=== PATIENT | male | born 1945 | race Caucasian/White ===

== ENCOUNTER 2018-06-25 16:15 | Emergency (ER) | payer MEDICARE ==
[~2018-06-25] VITALS: Ht 190.5 cm; Wt 56.0 kg
[2018-06-25] MEDS ORDERED: SODIUM CHLORIDE FLUSH 10ML SYR IVF ONE (17:00)
[2018-06-25] MEDS ORDERED: ASPIRIN 81 MG TABLET CHEW PO ONE (17:00)
[2018-06-25] MEDS ORDERED: ASPIRIN 81 MG TABLET CHEW ONE (17:19)
[2018-06-25 17:31] LABS: BASOPHILS # (AUTO) 0.07 x10^3/uL (0-0.1); BASOPHILS % (AUTO) 1 % (0-1); EOSINOPHILS # (AUTO) 0.27 x10^3/uL (0-0.4); EOSINOPHILS % (AUTO) 4 % (1-7); LYMPHOCYTES # (AUTO) 1.86 x10^3/uL (1-3.4); LYMPHOCYTES % (AUTO) 26 % (22-44); MD NO; MEAN CORPUSCULAR HEMOGLOBIN 32.8 pg (27.5-34.5); MEAN CORPUSCULAR HGB CONC 32.8 g/dL (33.2-36.2); MEAN PLATELET VOLUME 8.9 fL (7.4-10.4); MONOCYTES # (AUTO) 0.55 x10^3/uL (0.2-0.8); MONOCYTES % (AUTO) 8 % (2-9); NEUTROPHILS % (AUTO) 61 % (42-75); PLATELET COUNT 258 x10^3/uL (130-400); RED BLOOD COUNT 5.29 x10^6/uL (4.38-5.82); RED CELL DISTRIBUTION WIDTH 14.6 % (9.4-14.8)
[2018-06-25 17:40] LABS: ALBUMIN 4.1 g/dL (3.4-5.0); ANION GAP 5 mmol/L (5-15); CALCIUM 9.2 mg/dL (8.5-10.1); CHLORIDE 104 mmol/L (98-107)
[2018-06-25 17:46] LABS: ALANINE AMINOTRANSFERASE 39 U/L (12-78); ALKALINE PHOSPHATASE 74 U/L (45-117); BILIRUBIN,TOTAL 0.5 mg/dL (0.2-1.0); TOTAL PROTEIN 7.7 g/dL (6.4-8.2); TROPONIN I < 0.015 ng/mL (0.000-0.045)
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
[2018-06-25 19:29] VITALS: BP 117/43
== END 2018-06-25 19:31 | disposition home or self-care (01) ==
LOC: ED 17:29
DX: R07.2 Precordial pain (principal); R06.00 Dyspnea, unspecified; R10.9 Unspecified abdominal pain; I25.2 Old myocardial infarction
CPT/HCPCS: 36415; 71250; 74176; 80053; 84484; 85025; 93005; 99284

== ENCOUNTER 2018-07-12 00:31 | Inpatient (IN) | payer MEDICARE ==
[~2018-07-12] VITALS: Ht 190.5 cm; Wt 58.6 kg
[2018-07-12] MEDS ORDERED: ASPIRIN 81 MG TABLET CHEW ONE (00:44)
[2018-07-12] MEDS ORDERED: ASPIRIN 81 MG TABLET CHEW PO ONE (01:00)
[2018-07-12] MEDS ORDERED: SODIUM CHLORIDE FLUSH 10ML SYR IVF ONE (01:00)
[2018-07-12 01:17] LABS: BASOPHILS # (AUTO) 0.03 x10^3/uL (0-0.1); BASOPHILS % (AUTO) 0 % (0-1); EOSINOPHILS # (AUTO) 0.23 x10^3/uL (0-0.4); EOSINOPHILS % (AUTO) 3 % (1-7); LYMPHOCYTES # (AUTO) 1.29 x10^3/uL (1-3.4); LYMPHOCYTES % (AUTO) 14 % (22-44); MD NO; MEAN CORPUSCULAR HEMOGLOBIN 33.4 pg (27.5-34.5); MEAN CORPUSCULAR HGB CONC 33.9 g/dL (33.2-36.2); MEAN CORPUSCULAR VOLUME 98.7 fL (81-97); MEAN PLATELET VOLUME 7.9 fL (7.4-10.4); MONOCYTES # (AUTO) 0.78 x10^3/uL (0.2-0.8); MONOCYTES % (AUTO) 9 % (2-9); NEUTROPHILS # (AUTO) 6.74 x10^3/uL (1.8-6.8); NEUTROPHILS % (AUTO) 74 % (42-75); PLATELET COUNT 232 x10^3/uL (130-400); RED BLOOD COUNT 4.56 x10^6/uL (4.38-5.82); RED CELL DISTRIBUTION WIDTH 14.5 % (9.4-14.8)
[2018-07-12 01:25] LABS: INTERNATIONAL NORMALIZED RATIO 0.99 (0.93-1.1); PROTHROMBIN TIME 10.4 Seconds (9.6-11.5)
[2018-07-12 01:27] LABS: ALBUMIN 3.3 g/dL (3.4-5.0); ANION GAP 2 mmol/L (5-15); CALCIUM 8.4 mg/dL (8.5-10.1); CHLORIDE 105 mmol/L (98-107)
[2018-07-12 01:33] LABS: ALANINE AMINOTRANSFERASE 21 U/L (12-78); ALKALINE PHOSPHATASE 62 U/L (45-117); BILIRUBIN,TOTAL 0.2 mg/dL (0.2-1.0); CREATININE 0.98 mg/dL (0.7-1.3); TOTAL PROTEIN 6.4 g/dL (6.4-8.2)
[2018-07-12 01:35] LABS: TROPONIN I 0.154 ng/mL (0.000-0.045)
[2018-07-12 02:38] VITALS: BP 120/70
[2018-07-12] MEDS ORDERED: TRAM50TA2 PO (02:54)
[2018-07-12] MEDS ORDERED: FAMO1TAB3 PO (02:55)
[2018-07-12] MEDS ORDERED: CALCIUM CARBONATE 500 MG TAB.CHEW ONE (03:19)
[2018-07-12] MEDS ORDERED: CALCIUM CARBONATE 500 MG TAB.CHEW PO PRN (03:30)
[2018-07-12] MEDS ORDERED: NITROGLYCERIN 0.4 MG/SPRAY SL PRN (04:00)
[2018-07-12] MEDS ORDERED: ENALAPRILAT 1.25 MG/ML, 2ML IVPush PRN (04:00)
[2018-07-12] MEDS: HEPARIN 5,000 UNITS/ML, 1ML SQ SCH ×3 (04:00→20:00)
[2018-07-12] MEDS ORDERED: NITROGLYCERIN 0.4 MG BOTTLE (25 TABS) SL PRN ×2 (04:00)
[2018-07-12] MEDS ORDERED: ONDANSETRON 2MG/ML, 2ML IVPush PRN (04:00)
[2018-07-12] MEDS ORDERED: ACETAMINOPHEN 325 MG TABLET PO PRN (04:00)
[2018-07-12] MEDS: LACTATED RINGERS 1,000 ML IV SCH (04:11)
[2018-07-12] MEDS ORDERED: ALBUTEROL SULFATE 2.5 MG/3 ML NPPB PRN (05:30)
[2018-07-12 05:35] LABS: TROPONIN I 0.872 ng/mL (0.000-0.045)
[2018-07-12 05:40] LABS: THYROID STIMULATING HORMONE 0.962 mIU/L (0.358-3.740)
[2018-07-12] MEDS: OMEPRAZOLE 20 MG CAPSULE.DR PO SCH (05:57)
[2018-07-12] MEDS ORDERED: ASPIRIN 325 MG TABLET EC PO SCH (06:00)
[2018-07-12 07:50] VITALS: BP 116/68
[2018-07-12 10:02] LABS: TROPONIN I 0.635 ng/mL (0.000-0.045)
[2018-07-12] MEDS: ASPIRIN 81 MG TABLET EC PO SCH (10:11)
[2018-07-12] MEDS ORDERED: REGADENOSON 0.4 MG/5 ML SYRINGE ONE (11:30)
[2018-07-12 13:36] VITALS: BP 102/60
[2018-07-12 19:31] VITALS: BP 99/48
[2018-07-12] MEDS ORDERED: DIPHENHYDRAMINE 50 MG CAPSULE PO PRN (21:30)
[2018-07-13] MEDS: LACTATED RINGERS 1,000 ML IV SCH (00:52)
[2018-07-13 01:42] VITALS: BP 103/59
[2018-07-13] MEDS: HEPARIN 5,000 UNITS/ML, 1ML SQ SCH ×2 (04:00→12:00)
[2018-07-13 05:27] LABS: CHOL/HDL RATIO 2.9; LDL/HDL RATIO 1.5 (0.5-3.0)
[2018-07-13] MEDS: ASPIRIN 81 MG TABLET EC PO SCH (06:43)
[2018-07-13] MEDS: OMEPRAZOLE 20 MG CAPSULE.DR PO SCH (06:43)
[2018-07-13 07:26] VITALS: BP 112/67
[2018-07-13 12:24] LABS: BASOPHILS # (AUTO) 0.04 x10^3/uL (0-0.1); BASOPHILS % (AUTO) 1 % (0-1); EOSINOPHILS # (AUTO) 0.27 x10^3/uL (0-0.4); EOSINOPHILS % (AUTO) 3 % (1-7); LYMPHOCYTES # (AUTO) 2.06 x10^3/uL (1-3.4); LYMPHOCYTES % (AUTO) 22 % (22-44); MD NO; MEAN CORPUSCULAR HEMOGLOBIN 32.9 pg (27.5-34.5); MEAN CORPUSCULAR HGB CONC 33.3 g/dL (33.2-36.2); MEAN CORPUSCULAR VOLUME 98.9 fL (81-97); MEAN PLATELET VOLUME 8.8 fL (7.4-10.4); MONOCYTES # (AUTO) 0.84 x10^3/uL (0.2-0.8); MONOCYTES % (AUTO) 9 % (2-9); NEUTROPHILS # (AUTO) 6.19 x10^3/uL (1.8-6.8); NEUTROPHILS % (AUTO) 66 % (42-75); PLATELET COUNT 233 x10^3/uL (130-400); RED BLOOD COUNT 4.54 x10^6/uL (4.38-5.82); RED CELL DISTRIBUTION WIDTH 14.3 % (9.4-14.8)
[2018-07-13 14:22] VITALS: BP 128/64
[2018-07-13] MEDS ORDERED: methylPREDNISolone SOD SUCC 125 MG/2 ML IVPush ONE (17:00)
[2018-07-13] MEDS ORDERED: DIPHENHYDRAMINE 50 MG/ML, 1ML IVPush ONE (17:00)
[2018-07-13] MEDS ORDERED: CEFD300C37 PO (17:30)
[2018-07-13] MEDS ORDERED: OMEP-110 PO (17:30)
[2018-07-13] MEDS ORDERED: DOXY100T PO (17:30)
[2018-07-13] MEDS ORDERED: ALBU6.7H IH (17:30)
[2018-07-13] MEDS ORDERED: OMNIPAQUE 350 MG/ML, 100ML BOTTLE ONE (17:52)
== END 2018-07-13 19:23 | disposition home or self-care (01) | DRG 194 ==
LOC: ED 00:56 → EDIP 01:54 → 5SO 02:34
PROVIDERS: ADMIT Family Medicine; ATTEND Family Medicine
DX: J18.9 Pneumonia, unspecified organism (principal); Z68.1 Body mass index [BMI] 19.9 or less, adult; I24.8 Other forms of acute ischemic heart disease; R07.89 Other chest pain; I77.810 Thoracic aortic ectasia; J43.9 Emphysema, unspecified; R63.6 Underweight; Z79.82 Long term (current) use of aspirin; Z86.010 Personal history of colon polyps; Z91.19 Patient's noncompliance with other medical treatment and regimen; Z99.81 Dependence on supplemental oxygen; I25.2 Old myocardial infarction
CPT/HCPCS: 36415; 71045; 71275; 78452; 80053; 80061; 82378; 83880; 84443; 84484; 85025; 85610; 85730; 93005; 93017; 93306; 99291; G0378; J2785; Q9967; A9502; C9898; J1200; J2930; J7120

== ENCOUNTER 2018-10-18 09:01 | Inpatient (IN) | payer MEDICARE ==
[~2018-10-18] VITALS: Ht 190.5 cm; Wt 61.0 kg
[~2018-10-18 09:01] MED LIST: ALBU6.7H8 IH; CEFD300C37 PO; DOXY100T PO; FAMO1TAB3 PO; OMEP-110 PO; TRAM50TA2 PO
[2018-10-18] MEDS ORDERED: ASPIRIN 325 MG TABLET PO STA (09:04)
[2018-10-18] MEDS ORDERED: FENTANYL PF 100 MCG/2ML ONE (09:12)
[2018-10-18] MEDS ORDERED: VERAPAMIL 2.5 MG/ML, 2ML ONE (09:12)
[2018-10-18] MEDS ORDERED: MIDAZOLAM 1 MG/ML, 5ML ONE (09:12)
[2018-10-18] MEDS ORDERED: LIDOCAINE 2%, 20ML ONE (09:12)
[2018-10-18] MEDS ORDERED: BIVALIRUDIN 250 MG ONE (09:12)
[2018-10-18] MEDS ORDERED: DIPHENHYDRAMINE 50 MG/ML, 1ML ONE (09:12)
[2018-10-18] MEDS ORDERED: NITROGLYCERIN 5 MG/ML, 10ML ONE (09:12)
[2018-10-18] MEDS ORDERED: HEPARIN 1,000 UNITS/ML, 10ML ONE (09:12)
[2018-10-18] MEDS ORDERED: TICAGRELOR 90 MG TABLET ONE (09:12)
[2018-10-18 09:16] LABS: BASOPHILS # (AUTO) 0.03 x10^3/uL (0-0.1); BASOPHILS % (AUTO) 0 % (0-1); EOSINOPHILS # (AUTO) 0.04 x10^3/uL (0-0.4); EOSINOPHILS % (AUTO) 0 % (1-7); LYMPHOCYTES % (AUTO) 8 % (22-44); MD NO; MEAN CORPUSCULAR HEMOGLOBIN 32.9 pg (27.5-34.5); MEAN CORPUSCULAR HGB CONC 32.6 g/dL (33.2-36.2); MEAN CORPUSCULAR VOLUME 100.9 fL (81-97); MEAN PLATELET VOLUME 7.8 fL (7.4-10.4); MONOCYTES % (AUTO) 10 % (2-9); NEUTROPHILS % (AUTO) 82 % (42-75); PLATELET COUNT 231 x10^3/uL (130-400); RED CELL DISTRIBUTION WIDTH 13.3 % (9.4-14.8)
[2018-10-18] MEDS ORDERED: methylPREDNISolone SOD SUCC 125 MG/2 ML ONE (09:24)
[2018-10-18 09:28] LABS: INTERNATIONAL NORMALIZED RATIO 1.06 (0.93-1.1); PROTHROMBIN TIME 11.1 Seconds (9.6-11.5)
--- NOTE | 2018-10-18 09:37 | NUR ---
PT ARRIVED TO ED AT 0900, DR KYLE TO BEDSIDE APPROX 0912 AND REVIEWED EKG. UPON REVIEW OF PREVIOUS EKG PT GOING TO PASSENGER VESSEL CHEF PER DR KYLE. PT ARRIVED TO PASSENGER VESSEL CHEF AT 0918. VSS. [id number]
[2018-10-18] MEDS ORDERED: ISOSORBIDE MONONITRATE ER 30 MG TABLET PO SCH (11:00)
[2018-10-18 12:00] VITALS: BP 103/62
[2018-10-18] MEDS: SODIUM CHLORIDE 0.9% 1,000 ML IV SCH ×2 (14:07→19:34)
[2018-10-18 16:00] VITALS: BP 95/58
[2018-10-18] MEDS ORDERED: TRAM50TA2 PO (16:23)
[2018-10-18] MEDS ORDERED: METOPROLOL TARTRATE 25 MG TABLET PO SCH (18:00)
[2018-10-18] MEDS: METOPROLOL TARTRATE 25 MG TABLET PO SCH (18:00)
[2018-10-18] MEDS: TICAGRELOR 90 MG TABLET PO SCH (19:34)
[2018-10-18] MEDS: ATORVASTATIN 80 MG TABLET PO SCH (19:34)
[2018-10-19] MEDS: SODIUM CHLORIDE 0.9% 1,000 ML IV SCH (02:41)
[2018-10-19 04:35] LABS: BASOPHILS # (AUTO) 0.01 x10^3/uL (0-0.1); BASOPHILS % (AUTO) 0 % (0-1); EOSINOPHILS % (AUTO) 0 % (1-7); LYMPHOCYTES # (AUTO) 0.83 x10^3/uL (1-3.4); LYMPHOCYTES % (AUTO) 6 % (22-44); MD NO; MEAN CORPUSCULAR HEMOGLOBIN 33.6 pg (27.5-34.5); MEAN CORPUSCULAR HGB CONC 32.9 g/dL (33.2-36.2); MEAN CORPUSCULAR VOLUME 102.2 fL (81-97); MEAN PLATELET VOLUME 8.7 fL (7.4-10.4); MONOCYTES # (AUTO) 1.07 x10^3/uL (0.2-0.8); MONOCYTES % (AUTO) 8 % (2-9); NEUTROPHILS # (AUTO) 11.44 x10^3/uL (1.8-6.8); NEUTROPHILS % (AUTO) 86 % (42-75); PLATELET COUNT 207 x10^3/uL (130-400); RED BLOOD COUNT 4.16 x10^6/uL (4.38-5.82); RED CELL DISTRIBUTION WIDTH 13.7 % (9.4-14.8)
[2018-10-19 04:47] LABS: ANION GAP 4 mmol/L (5-15); CALCIUM 8.3 mg/dL (8.5-10.1); CHLORIDE 107 mmol/L (98-107); CREATININE 0.86 mg/dL (0.7-1.3)
[2018-10-19] MEDS: METOPROLOL TARTRATE 25 MG TABLET PO SCH ×2 (05:18→17:30)
[2018-10-19] MEDS: ASPIRIN 81 MG TABLET EC PO SCH (09:08)
[2018-10-19] MEDS: TICAGRELOR 90 MG TABLET PO SCH ×2 (09:08→21:08)
[2018-10-19 13:30] VITALS: BP 115/68
[2018-10-19 15:45] VITALS: BP 118/72
[2018-10-19 17:30] VITALS: BP 116/74
[2018-10-19 18:57] VITALS: BP 121/69
[2018-10-19] MEDS: ATORVASTATIN 80 MG TABLET PO SCH (21:08)
[2018-10-20 01:51] VITALS: BP 115/70
[2018-10-20] MEDS: METOPROLOL TARTRATE 25 MG TABLET PO SCH (06:00)
[2018-10-20 06:08] VITALS: BP 104/64
[2018-10-20] MEDS: ASPIRIN 81 MG TABLET EC PO SCH (06:10)
[2018-10-20 06:55] VITALS: BP 111/63
[2018-10-20] MEDS: TICAGRELOR 90 MG TABLET PO SCH (08:58)
[2018-10-20] MEDS ORDERED: ATOR-2 PO (09:54)
[2018-10-20] MEDS ORDERED: METO25TA35 PO ×2 (09:54)
[2018-10-20] MEDS ORDERED: ASPI81TA45 PO (09:54)
[2018-10-20] MEDS ORDERED: TICA90TA PO (09:54)
[2018-10-25] MEDS ORDERED: APIX2.5T PO (06:35)
[2018-10-25] MEDS ORDERED: ATOR80TA PO (15:53)
[2018-10-26] MEDS ORDERED: ASPI81TA50 PO (12:42)
== END 2018-10-20 11:40 | disposition home or self-care (01) | DRG 246 ==
LOC: EDBD 09:01 → MERGE 09:01 → ED 09:20 → EDIP 09:43 → CCU 10:17 → ICU 10-19 07:09 → 5SO 10-19 15:40 → DCLOUNGE 10-20 11:24
PROVIDERS: ADMIT Internal Medicine; ATTEND Internal Medicine
PROC: 027035Z Dilation of Coronary Artery, One Artery with Two Drug-eluting Intraluminal Devices, Percutaneous Approach (ICD-10-PCS; principal; 2018-10-18)
PROC: 02703ZZ Dilation of Coronary Artery, One Artery, Percutaneous Approach (ICD-10-PCS; 2018-10-18)
PROC: 4A023N7 Measurement of Cardiac Sampling and Pressure, Left Heart, Percutaneous Approach (ICD-10-PCS; 2018-10-18)
PROC: B2111ZZ Fluoroscopy of Multiple Coronary Arteries using Low Osmolar Contrast (ICD-10-PCS; 2018-10-18)
DX: I21.09 ST elevation (STEMI) myocardial infarction involving other coronary artery of anterior wall (principal); I50.33 Acute on chronic diastolic (congestive) heart failure; Z68.1 Body mass index [BMI] 19.9 or less, adult; E78.5 Hyperlipidemia, unspecified; I25.10 Atherosclerotic heart disease of native coronary artery without angina pectoris; I34.0 Nonrheumatic mitral (valve) insufficiency; J43.9 Emphysema, unspecified; R63.4 Abnormal weight loss; I77.819 Aortic ectasia, unspecified site; R00.1 Bradycardia, unspecified; Z72.0 Tobacco use; Z90.49 Acquired absence of other specified parts of digestive tract; Z86.79 Personal history of other diseases of the circulatory system; Z90.81 Acquired absence of spleen; Z95.5 Presence of coronary angioplasty implant and graft
CPT/HCPCS: 0399T; 36415; 71045; 80047; 80048; 84484; 85025; 85610; 85730; 87081; 93005; 93306; 93458; 99156; 99157; C1769; C1894; G0378; J0583; J1644; J2250; J3010; C1725; C1874; C1887; J1200; J2930; J7030; Q9967

== ENCOUNTER 2018-10-25 05:05 | Inpatient (IN) | payer MEDICARE ==
[~2018-10-25] VITALS: Ht 190.5 cm; Wt 63.4 kg
[2018-10-26 12:46] VITALS: BP 108/65
== END 2018-10-26 14:07 | disposition home health service (06) | DRG 313 ==
LOC: ED 06:33 → EDIP 06:34 → 5SO 07:45 → DCLOUNGE 10-26 13:47
PROVIDERS: ADMIT Internal Medicine; ATTEND Internal Medicine
DX: R07.89 Other chest pain (principal); I25.10 Atherosclerotic heart disease of native coronary artery without angina pectoris; E78.5 Hyperlipidemia, unspecified; F17.200 Nicotine dependence, unspecified, uncomplicated; H54.7 Unspecified visual loss; I34.0 Nonrheumatic mitral (valve) insufficiency; I71.2 Thoracic aortic aneurysm, without rupture; J44.9 Chronic obstructive pulmonary disease, unspecified; Z86.79 Personal history of other diseases of the circulatory system; I25.2 Old myocardial infarction; Z90.81 Acquired absence of spleen; Z95.5 Presence of coronary angioplasty implant and graft; Z91.041 Radiographic dye allergy status
CPT/HCPCS: 36415; 71045; 71275; 80048; 80053; 80061; 82040; 83036; 83735; 84439; 84443; 84484; 85025; 93005; 93308; 93321; 93325; 94640; 96374; G0378; Q9967; J2270; J7030; J7512

== ENCOUNTER → 2019-11-02 | Outpatient (CLI) | payer MEDICARE ==
[~2019-11-02] MED LIST changes: +APIX2.5T PO; +ASPI81TA45 PO; +ASPI81TA50 PO; +ATOR-2 PO; +ATOR80TA PO; +METO25TA35 PO; +TICA90TA PO
[2019-11-02 13:28] LABS: ALANINE AMINOTRANSFERASE 26 U/L (12-78); ALBUMIN 3.5 g/dL (3.4-5.0); ANION GAP 3 mmol/L (5-15); CALCIUM 8.6 mg/dL (8.5-10.1); CHLORIDE 108 mmol/L (98-107)
[2019-11-02 13:32] LABS: ALKALINE PHOSPHATASE 79 U/L (45-117); BILIRUBIN,TOTAL 0.7 mg/dL (0.2-1.0); CHOL/HDL RATIO 1.7; CHOLESTEROL, TOTAL 82 mg/dL (140-239); CREATININE 0.97 mg/dL (0.7-1.3); HDL CHOL % 59 % (26-37); HDL CHOLESTEROL (DIRECT) 48 mg/dL (40-60); LDL CHOLESTEROL,CALCULATED 26 mg/dL (54-169); LDL/HDL RATIO 0.5 (0.5-3.0); TOTAL PROTEIN 6.9 g/dL (6.4-8.2); TRIGLYCERIDES 41 mg/dL (50-200); VLDL CHOLESTEROL 8 mg/dL (0-25)
== END | disposition home or self-care (01) ==
LOC: CFH 10:41
PROVIDERS: ATTEND Internal Medicine Cardiovascular Disease
DX: I25.10 Atherosclerotic heart disease of native coronary artery without angina pectoris (principal); I10 Essential (primary) hypertension; E78.2 Mixed hyperlipidemia; F17.200 Nicotine dependence, unspecified, uncomplicated; I71.2 Thoracic aortic aneurysm, without rupture
CPT/HCPCS: 36415; 80053; 80061

== ENCOUNTER → 2019-11-10 | Outpatient (CLI) | payer MEDICARE | END | disposition home or self-care (01) | LOC: CVU 15:48 | PROVIDERS: ATTEND Internal Medicine Cardiovascular Disease | DX: I08.1 Rheumatic disorders of both mitral and tricuspid valves (principal); I25.10 Atherosclerotic heart disease of native coronary artery without angina pectoris; I71.2 Thoracic aortic aneurysm, without rupture | CPT/HCPCS: 93306 ==

== ENCOUNTER 2020-11-14 19:31 | Emergency (ER) | payer MEDICARE ==
[~2020-11-14] VITALS: Ht 190.5 cm; Wt 62.1 kg
--- NOTE | 2020-11-14 19:46 | NUR ---
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
[2020-11-14 20:31] LABS: BASOPHILS % (AUTO) 1 % (0-1); EOSINOPHILS % (AUTO) 4 % (1-7); LYMPHOCYTES % (AUTO) 22 % (22-44); MEAN CORPUSCULAR HEMOGLOBIN 33.3 pg (27.5-34.5); MEAN PLATELET VOLUME 7.7 fL (7.4-10.4); MONOCYTES % (AUTO) 9 % (2-9); NEUTROPHILS % (AUTO) 65 % (42-75); PLATELET COUNT 236 x10^3/uL (130-400); RED BLOOD COUNT 4.82 x10^6/uL (4.38-5.82); RED CELL DISTRIBUTION WIDTH 14.2 % (9.4-14.8)
[2020-11-14 20:42] LABS: ALANINE AMINOTRANSFERASE 28 U/L (12-78); ANION GAP 2 mmol/L (5-15); CALCIUM 8.4 mg/dL (8.5-10.1); CHLORIDE 107 mmol/L (98-107)
[2020-11-14 20:47] LABS: ALKALINE PHOSPHATASE 75 U/L (45-117); BILIRUBIN,TOTAL 0.6 mg/dL (0.2-1.0); CREATININE 0.91 mg/dL (0.7-1.3); TOTAL PROTEIN 6.8 g/dL (6.4-8.2); TROPONIN I < 0.015 ng/mL (0.000-0.045)
[2020-11-14 21:35] VITALS: BP 127/71
== END 2020-11-14 21:57 | disposition home or self-care (01) ==
LOC: ED 21:17
DX: R07.2 Precordial pain (principal); M79.602 Pain in left arm; R42 Dizziness and giddiness; I25.2 Old myocardial infarction
CPT/HCPCS: 36415; 71045; 80053; 84484; 85025; 93005; 99285